=== PATIENT | female | born 1950 | race Caucasian/White ===

== ENCOUNTER → 2017-02-18 | Outpatient (CLI) | payer OTHER | LOC: RAD 13:26 | DX: S69.92XA Unspecified injury of left wrist, hand and finger(s), initial encounter (principal); S62.315A Displaced fracture of base of fourth metacarpal bone, left hand, initial encounter for closed fracture; M79.89 Other specified soft tissue disorders | CPT/HCPCS: 73110; 73130 ==

== ENCOUNTER 2020-10-01 11:15 | Inpatient (IN) | payer MEDICARE, OTHER ==
[~2020-10-01] VITALS: Ht 157.5 cm; Wt 83.5 kg
[~2020-10-01 11:15] MED LIST: ANTIVERT 12.512.5 MG PO; DILANTIN100 MG PO; GLUCOPHAGE500 MG PO; MACROBID 100 M100 MG PO; MEGA BIOTIN10000 MCG PO; OMNICEF 300 MG300 MG PO; PHENOBARBITAL100 MG PO; PRINIVIL5 MG PO; SIMVASTATIN20 MG PO; SPIRONOLACTONE25 MG PO; SYNTHROID150 MCG PO; VITAMIN B-121000 MCG PO; VITAMIN D250000 UNIT PO
[2020-10-01 12:06] LABS: HEMOGLOBIN 9.7 gm/dl (12.3-15.3); RED BLOOD COUNT 3.02 M/UL (4.00-5.10); WHITE BLOOD COUNT 10.7 K/UL (4.5-11.0)
[2020-10-01] MEDS ORDERED: ALDACTONE 25MG25 MG PO (14:16)
[2020-10-01] MEDS ORDERED: LIPITOR20 MG PO (14:16)
[2020-10-01] MEDS ORDERED: LEVOTHYROXINE150 MCG PO (14:17)
[2020-10-01] MEDS ORDERED: FERATE240 MG PO (14:17)
[2020-10-01] MEDS ORDERED: VITAMIN D325 MCG PO (14:18)
[2020-10-01] MEDS ORDERED: LASIX TAB 20 MG20 MG PO (14:18)
[2020-10-01] MEDS ORDERED: MAG-OX 400 TAB400 MG PO (14:19)
[2020-10-01] MEDS ORDERED: ZOFRAN ODT 4 MG4 MG PO (14:19)
[2020-10-01] MEDS ORDERED: ZESTRIL/PRINIVI10 MG PO (14:20)
[2020-10-01] MEDS ORDERED: [UNRECOGNIZED DRUG - OTHER] PO (14:24)
[2020-10-01] MEDS ORDERED: TYLENOL325 MG PO (14:24)
[2020-10-02 08:13] LABS: HEMOGLOBIN 8.1 gm/dl (12.3-15.3); RED BLOOD COUNT 2.46 M/UL (4.00-5.10); WHITE BLOOD COUNT 7.9 K/UL (4.5-11.0)
[2020-10-02 08:44] LABS: BUN/CREATININE RATIO 20 (0-10)
[2020-10-03 02:32] LABS: HEMOGLOBIN 8.9 gm/dl (12.3-15.3); WHITE BLOOD COUNT 8.3 K/UL (4.5-11.0)
[2020-10-03 02:36] LABS: RED BLOOD COUNT 2.8 M/UL (4.00-5.10)
[2020-10-03 02:55] LABS: BUN/CREATININE RATIO 21 (0-10)
[2020-10-04 04:34] LABS: HEMOGLOBIN 8.7 gm/dl (12.3-15.3); RED BLOOD COUNT 2.66 M/UL (4.00-5.10); WHITE BLOOD COUNT 7.8 K/UL (4.5-11.0)
[2020-10-04 04:46] LABS: BUN/CREATININE RATIO 23 (0-10)
[2020-10-05 03:46] LABS: HEMOGLOBIN 9.3 gm/dl (12.3-15.3); RED BLOOD COUNT 2.92 M/UL (4.00-5.10); WHITE BLOOD COUNT 6.4 K/UL (4.5-11.0)
[2020-10-05 04:01] LABS: BUN/CREATININE RATIO 27 (0-10)
[2020-10-06 08:22] LABS: HEMOGLOBIN 9.2 gm/dl (12.3-15.3); RED BLOOD COUNT 2.88 M/UL (4.00-5.10); WHITE BLOOD COUNT 7.3 K/UL (4.5-11.0)
[2020-10-06 08:42] LABS: BUN/CREATININE RATIO 26 (0-10)
[2020-10-07 02:11] LABS: RED BLOOD COUNT 2.84 M/UL (4.00-5.10); WHITE BLOOD COUNT 7.7 K/UL (4.5-11.0)
[2020-10-07 02:34] LABS: BUN/CREATININE RATIO 30 (0-10)
[2020-10-07 16:02] LABS: BUN/CREATININE RATIO 34 (0-10)
--- NOTE | 2020-10-07 16:08 | NUR ---
O930 - MD IN ROOM TO SEE PT. MANY QUESTIONS ANSWERED FOR SISTER AT BEDSIDE. 1015 - SISTER REQUESTING TO SPEAK WITH MD AGAIN. EXPLAINED THAT MD HAS LEFT FLOOR AND WILL SEE PT IN AM. SEVERAL QUESTIONS ANSWERED RE: LABS, MEDICATIONS, ETC 1215 - SPOKE WITH SISTERS X 2 IN ROOM WITH SPEAKER PHONE. QUESTIONS ANSWERED. 1415- SISTER INSISTENT THAT MD COME TO BEDSIDE. VOICES CONCERNS OVER B/P, HR, O2 SAT AND PT'S WEAKNESS. SHE IS CONCERNED THAT PT IS DEHYDRATED. EXPLAINED THAT PT'S VS ARE STABLE AND SHE HAS COVID AND WILL HAVE WEAKNESS. MD NOTIFIED AND THEN CALLED FROM ROOM SO HE COULD SPEAK WITH FAMILY. ORDERS RECEIVED. 1500 - SPOKE WITH PHARMACY AND MD ON ORDERS. NEW ORDERS RECEIVED. SISTER MADE AWARE OF NEW ORDERS. PT HAS BEEN INCONTINENT OF BLADDER AND URINE SAMPLE ORDERED. SISTER STATES THAT THE PT IS CONTINENT AND REFUSES AN IN AND OUT CATH OR F/C INSERTION. 1600 - LABS AND URINE OBTAINED.
[2020-10-08 02:33] LABS: HEMOGLOBIN 8.7 gm/dl (12.3-15.3); RED BLOOD COUNT 2.74 M/UL (4.00-5.10); WHITE BLOOD COUNT 7.4 K/UL (4.5-11.0)
[2020-10-08 02:56] LABS: BUN/CREATININE RATIO 33 (0-10)
[2020-10-09 03:23] LABS: HEMOGLOBIN 8.6 gm/dl (12.3-15.3); RED BLOOD COUNT 2.71 M/UL (4.00-5.10); WHITE BLOOD COUNT 8.1 K/UL (4.5-11.0)
[2020-10-09 03:46] LABS: BUN/CREATININE RATIO 32 (0-10)
[2020-10-09] MEDS ORDERED: BENZONATATE100 MG PO (12:05)
[2020-10-09] MEDS ORDERED: LASIX TAB 20 MG20 MG PO (12:05)
[2020-10-09] MEDS ORDERED: DEXAMETHASONE 44 MG PO (12:05)
[2020-10-09] MEDS ORDERED: IPRAT-ALBUT 0.5-3 ML NEB (12:05)
[2020-10-09] MEDS ORDERED: SODIUM CHLORIDE1 G1 PO (12:05)
[2020-10-09] MEDS ORDERED: BUDESONIDE0.5 MG/2 M NEB (12:05)
[2020-10-09] MEDS ORDERED: DOXYCYCLINE HY100 MG PO (12:08)
--- NOTE | 2020-10-09 14:20 | NUR ---
PATIENTS ROOM AIR SAT IS 88% WHEN STANDING UP AND AMBULATING WITH WALKER.
--- NOTE | 2020-10-09 15:52 | NUR ---
PATIENT ROOM AIR O2 SAT STAYS BETWEEN 91-94%. WHEN PATIENT AMBULATES IT DIPPED TO 88-89% FOR A BRIEF SECOND, THEN WENT BACK UP TO 92%.
== END 2020-10-09 16:54 | disposition home health service (06) | DRG 871 ==
LOC: ER1 11:15 → CDU 13:45 → PROG CARE 13:45
PROVIDERS: Internal Medicine; Preventive Medicine Occupational Medicine; ADMIT Internal Medicine
PROC: 8E0ZXY6 Isolation (ICD-10-PCS; principal; 2020-10-01)
PROC: XW033E5 Introduction of Remdesivir Anti-infective into Peripheral Vein, Percutaneous Approach, New Technology Group 5 (ICD-10-PCS; 2020-10-01)
PROC: B24BZZZ Ultrasonography of Heart with Aorta (ICD-10-PCS; 2020-10-02)
DX: A41.89 Other specified sepsis (principal); U07.1 COVID-19; R65.21 Severe sepsis with septic shock; J96.01 Acute respiratory failure with hypoxia; J12.82 Pneumonia due to coronavirus disease 2019; E87.1 Hypo-osmolality and hyponatremia; N39.0 Urinary tract infection, site not specified; A41.51 Sepsis due to Escherichia coli [E. coli]; E87.70 Fluid overload, unspecified; F79 Unspecified intellectual disabilities; R53.81 Other malaise; E03.9 Hypothyroidism, unspecified; E11.9 Type 2 diabetes mellitus without complications; G40.909 Epilepsy, unspecified, not intractable, without status epilepticus; E78.5 Hyperlipidemia, unspecified; D50.9 Iron deficiency anemia, unspecified; I11.0 Hypertensive heart disease with heart failure; I50.9 Heart failure, unspecified; E53.8 Deficiency of other specified B group vitamins; Z83.3 Family history of diabetes mellitus; Z82.49 Family history of ischemic heart disease and other diseases of the circulatory system; Z82.3 Family history of stroke; Z80.9 Family history of malignant neoplasm, unspecified; Z88.8 Allergy status to other drugs, medicaments and biological substances; Z79.84 Long term (current) use of oral hypoglycemic drugs; Z79.890 Hormone replacement therapy; Z79.899 Other long term (current) drug therapy
CPT/HCPCS: ECHO; 36415; 36600; 71045; 80048; 80053; 80202; 81001; 82436; 82533; 82550; 82553; 82803; 82962; 83605; 83690; 83874; 83880; 83935; 84133; 84300; 84439; 84443; 84484; 85025; 85379; 85610; 85652; 85730; 86140; 87040; 87077; 87086; 87186; 93005; 93306; 93970; 94640; 94664; 94760; 96365; 96366; 96367; 96368; 96372; 96375; 96376; 97110; 97110-GP-CQ; 97116-GP-CQ; 97162; 97166; 97530-GP-CQ; 99285; J0696; J1100; J1650; J1940; J2185; J2543; J3370; J7030; J7050; J7070; P9047; U0002

== ENCOUNTER 2021-04-15 20:13 | Emergency (ER) | payer MEDICARE, OTHER ==
[~2021-04-15 20:13] MED LIST changes: +ALDACTONE 25MG25 MG PO; +BENZONATATE100 MG PO; +BUDESONIDE0.5 MG/2 M NEB; +DEXAMETHASONE 44 MG PO; +DOXYCYCLINE HY100 MG PO; +FERATE240 MG PO; +IPRAT-ALBUT 0.5-3 ML NEB; +LASIX TAB 20 MG20 MG PO; +LEVOTHYROXINE150 MCG PO; +LIPITOR20 MG PO; +MAG-OX 400 TAB400 MG PO; +SODIUM CHLORIDE1 G1 PO; +TYLENOL325 MG PO; +VITAMIN D325 MCG PO; +ZESTRIL/PRINIVI10 MG PO; +ZOFRAN ODT 4 MG4 MG PO; +[UNRECOGNIZED DRUG - OTHER] PO
[2021-04-16 00:23] LABS: HEMOGLOBIN 10.7 gm/dl (12.3-15.3); RED BLOOD COUNT 3.35 M/UL (4.00-5.10); WHITE BLOOD COUNT 6.2 K/UL (4.5-11.0)
[2021-04-16 00:37] LABS: BUN/CREATININE RATIO 28 (0-10)
== END 2021-04-16 02:20 | disposition home or self-care (01) ==
LOC: ER1 20:13
PROVIDERS: Family Medicine
DX: S22.31XA Fracture of one rib, right side, initial encounter for closed fracture (principal); E11.9 Type 2 diabetes mellitus without complications; W22.8XXA Striking against or struck by other objects, initial encounter; Y92.009 Unspecified place in unspecified non-institutional (private) residence as the place of occurrence of the external cause
CPT/HCPCS: 70450; 71250; 80053; 80184; 80185; 82550; 82553; 83874; 84484; 85025; 93005; 99285

== ENCOUNTER 2021-12-11 00:44 | Emergency (ER) | payer MEDICARE, OTHER ==
[2021-12-11 01:40] LABS: RED BLOOD COUNT 3.15 M/UL (4.00-5.10); WHITE BLOOD COUNT 5.4 K/UL (4.5-11.0)
[2021-12-11 02:05] LABS: BUN/CREATININE RATIO 24 (0-10)
== END 2021-12-11 03:22 | disposition home or self-care (01) ==
LOC: ER1 00:44
PROVIDERS: Family Medicine
DX: S30.0XXA Contusion of lower back and pelvis, initial encounter (principal); E11.9 Type 2 diabetes mellitus without complications; E03.9 Hypothyroidism, unspecified; Z87.448 Personal history of other diseases of urinary system; W19.XXXA Unspecified fall, initial encounter
CPT/HCPCS: 72192; 80053; 85025; 99284